=== PATIENT | female | born 1960 ===

== ENCOUNTER 2017-10-06 16:07 | Outpatient (CLI) | payer OTHER | END 2017-10-06 16:08 | disposition home or self-care (01) | LOC: BICMAMMO 16:07 | PROVIDERS: ATTEND Internal Medicine | DX: Z12.31 Encounter for screening mammogram for malignant neoplasm of breast (principal) | CPT/HCPCS: 77063; 77067 ==

== ENCOUNTER 2019-01-08 13:14 | Outpatient (CLI) | payer OTHER ==
--- NOTE | 2019-01-08 14:10 | MMO ---
Bilateral MAMMO Bilat Screen DDI+DEDRA. CLINICAL HISTORY: Patient is 58 years old and is seen for screening. The patient has no family history of breast cancer. The patient has no personal history of cancer. VIEWS: The views performed were: bilateral craniocaudal with tomosynthesis and bilateral mediolateral oblique with tomosynthesis. FILMS COMPARED: The present examination has been compared to prior imaging studies performed at [facility] on 04/22/2016 and 10/06/2017, and at [facility] on 02/02/2013 and 08/12/2014. This study has been interpreted with the assistance of computer-aided detection. MAMMOGRAM FINDINGS: The breasts are heterogeneously dense, which could obscure a lesion on mammography. There is an asymmetry seen in the CC view only seen in the posterior outer region of the left breast. In the right breast, there are no suspicious masses, calcifications or areas of architectural distortion. IMPRESSION: ASYMMETRY IN THE LEFT BREAST REQUIRES ADDITIONAL EVALUATION. RECOMMEND DIAGNOSTIC MAMMOGRAM. ULTRASOUND MAY ALSO PROVE USEFUL AT RECALL. THE RESULTS OF THIS EXAM WERE SENT TO THE PATIENT. ACR BI-RADS Category 0 - Incomplete: Need additional imaging evaluation. [facility] will notify the patient of the need for additional imaging services. MAMMOGRAPHY NOTE: 1. A negative mammogram report should not delay a biopsy if a dominant of clinically suspicious mass is present. 2. Approximately 10% to 15% of breast cancers are not detected by mammography. 3. Adenosis and dense breasts may obscure an underlying neoplasm. Reported by: ALEXA MUNOZ MD Electonically Signed: [id number]
== END 2019-01-08 13:15 | disposition home or self-care (01) ==
LOC: BICMAMMO 13:14
PROVIDERS: ATTEND Internal Medicine
DX: Z12.31 Encounter for screening mammogram for malignant neoplasm of breast (principal); N64.89 Other specified disorders of breast
CPT/HCPCS: 77063; 77067

== ENCOUNTER 2019-01-14 13:24 | Outpatient (CLI) | payer OTHER ==
--- NOTE | 2019-01-14 14:09 | MMO ---
Left Breast MAMMO Unilat Diag DDI LT+DEDRA. CLINICAL HISTORY: Patient is 58 years old and is seen for diagnostic exam. The patient has no family history of breast cancer. The patient has no personal history of cancer. VIEWS: The views performed were: left craniocaudal spot compression with tomosynthesis and left mediolateral with tomosynthesis. FILMS COMPARED: The present examination has been compared to prior imaging studies performed at [facility] on 04/22/2016, 10/06/2017 and 01/08/2019, and at [facility] on 08/12/2014. This study has been interpreted with the assistance of computer-aided detection. MAMMOGRAM FINDINGS: The breast is heterogeneously dense, which could obscure a lesion on mammography. Previously described abnormality does not persist with additional imaging, most consistent with superimposition of benign breast parenchyma. There are no suspicious masses, suspicious calcifications, or new areas of architectural distortion. IMPRESSION: THERE IS NO MAMMOGRAPHIC EVIDENCE OF MALIGNANCY. PREVIOUSLY DESCRIBED ABNORMALITY DOES NOT PERSIST WITH ADDITIONAL IMAGING, MOST CONSISTENT WITH SUPERIMPOSITION OF BENIGN BREAST PARENCHYMA. A ROUTINE FOLLOW-UP MAMMOGRAM IN 1 YEAR IS RECOMMENDED. THE RESULTS OF THIS EXAM WERE SENT TO THE PATIENT. ACR BI-RADS Category 2 - Benign finding MAMMOGRAPHY NOTE: 1. A negative mammogram report should not delay a biopsy if a dominant of clinically suspicious mass is present. 2. Approximately 10% to 15% of breast cancers are not detected by mammography. 3. Adenosis and dense breasts may obscure an underlying neoplasm. Reported by: TOÑITO REYNA MD Electonically Signed: [id number]
== END 2019-01-14 13:25 | disposition home or self-care (01) ==
LOC: BICMAMMO 13:24
PROVIDERS: ATTEND Internal Medicine
DX: N64.89 Other specified disorders of breast (principal)
CPT/HCPCS: G0279